=== PATIENT | male | born 1995 | race Caucasian/White ===

== ENCOUNTER 2021-08-04 23:15 | Emergency (ER) | payer MEDICAID, OTHER ==
[~2021-08-04] VITALS: Ht 175.3 cm; Wt 75.7 kg
--- NOTE | 2021-08-05 00:08 | NUR ---
Dr coy is seeing pt in [facility] in progress.
[2021-08-05] MEDS ORDERED: ALBU8.5H8 INH (01:56)
[2021-08-05] MEDS ORDERED: CLAR-45 PO (01:56)
[2021-08-05] MEDS ORDERED: D-ME473S63 PO (01:56)
--- NOTE | 2021-08-05 02:02 | NUR ---
Patient discharged to home in stable condition. Written and verbal after care instructions given. Patient verbalizes understanding of instructions. Stressed follow up or return to ER for worsening s/s. pt ambulated with steady gait. denies pain. no SOB. no chest pain. AOx4
[2021-08-05 02:06] VITALS: BP 117/73
== END 2021-08-05 02:06 | disposition home or self-care (01) ==
LOC: ER 23:24
DX: J20.9 Acute bronchitis, unspecified (principal)
CPT/HCPCS: 71045; A4663